=== PATIENT | female | born 1955 | race Caucasian/White ===

== ENCOUNTER 2017-06-14 15:22 | Emergency (ER) | payer BC ==
[~2017-06-14] VITALS: Ht 162.6 cm; Wt 74.9 kg
[~2017-06-14 15:22] MED LIST: ASPI325T PO; ENOX40P SQ; LEVO112T2 PO; LIVA2TAB PO; LORTA5 PO; Z.0.COMMODE-3:1; Z.0.CPM; Z.0.WALKERFRONT
[2017-06-14 15:25] VITALS: BP 125/60; PULSE 80; RESP 16; TEMP 98.6
--- NOTE | 2017-06-14 17:37 | PD ---
HPI Chief Complaint: Abdominal Pain Time Seen by Provider: 17:23 Travel History International Travel<30 days: No Contact w/Intl Traveler<30days: No Traveled to known affect area: No History of Present Illness HPI The patient was seen and examined in the presence of the nurse. This patient complains of abdominal pain. Duration 2 days. Location is right lower quadrant. Severity is moderate. No alleviating factors. Denies fever or urinary complaints. She has no ovaries or uterus. No exacerbating factors. She ate lunch today which did not change her symptoms PFSH Past Medical History Arthritis: Yes Blood Disorders: No Anxiety: No Depression: No Cancer: Yes (THYROID) Cardiovascular Problems: Yes (MVP) High Cholesterol: Yes Diabetes: No Diminished Hearing: No Endocrine: No Gastrointestinal Disorders: Yes Genitourinary: No Hepatitis: No Hiatal Hernia: Yes Immune Disorder: No Implanted Vascular Access Dvce: No Musculoskeletal: Yes (ARTHRITIS) Neurologic: No Psychiatric: No Reproductive: No Respiratory: No Immunizations Current: Yes Thyroid Disease: Yes (thyiroidectomy) ?: Not Menopausal: Yes Past Surgical History AICD: No Endocrine Surgery: Yes (THYROIDECTOMY) Gynecologic Surgery: Yes (HYSTERECTOMY) Hysterectomy: Yes (1991) Joint Replacement: Yes (PARTIAL RIGHT KNEE) Oral Surgery: Yes (THYROIDECTOMY, TONSILS) Pacemaker: No Tonsillectomy: Yes Social History Alcohol Use: No Tobacco Use: Yes (QUIT X 1 WEEK AGO; PREVIOUSLY 1 PPD SMOKER X 44 YEARS) Substance Use: No Allergies-Medications (Allergen,Severity, Reaction): Coded Allergies: penicillin G (Verified Allergy, Severe, Hives, 06/14/17) azithromycin (Verified Allergy, Mild, ITCHING, 06/14/17) Uncoded Allergies: VYTORIN (Adverse Reaction, Intermediate, MUSCULAR PROBLEM, 08/08/14) Reported Meds & Prescriptions Reported Meds & Active Scripts Active Reported [Libraldor] 2 Mg PO HS Synthroid (Levothyroxine Sodium) 137 Mcg Tab 130 Mcg PO DAILY Review of Systems General / Constitutional: No: Fever Eyes: No: Visual changes HENT: No: Headaches Cardiovascular: No: Chest Pain or Discomfort Respiratory: No: Shortness of Breath Gastrointestinal: Positive: Abdominal Pain Genitourinary: No: Dysuria Musculoskeletal: No: Pain Skin: No Rash Neurologic: No: Weakness Psychiatric: No: Depression Endocrine: No: Polydipsia Hematologic/Lymphatic: No: Easy Bruising Physical Exam Narrative GENERAL: Well-nourished, well-developed patient in no apparent distress. SKIN: Focused skin assessment reveals no rash and nodules. Skin is Warm and dry. HEAD: Atraumatic. Normocephalic. EYES: Pupils equal and round. No scleral icterus. No injection or drainage. ENT: No nasal bleeding or discharge. Mucous membranes pink and moist. NECK: Trachea midline. No JVD. CARDIOVASCULAR: Regular rate and rhythm. No murmur appreciated. RESPIRATORY: No accessory muscle use. Clear to auscultation. Breath sounds equal bilaterally. GASTROINTESTINAL: Abdomen soft, right lower quadrant is tender without rebound or guarding, nondistended. Hepatic and splenic margins not palpable. MUSCULOSKELETAL: No obvious deformities. No clubbing. No cyanosis. No edema. NEUROLOGICAL: Awake and alert. No obvious cranial nerve deficits. Motor grossly within normal limits. Normal speech. PSYCHIATRIC: Appropriate mood and affect; insight and judgment normal. Data Data Last Documented VS Vital Signs Date Time Temp Pulse Resp B/P (MAP) Pulse Ox O2 Delivery O2 Flow Rate FiO2 06/14/17 19:06 14 96 Room Air 06/14/17 19:05 73 137/77 (97) 06/14/17 15:25 98.6 Orders Orders Basic Metabolic Panel (Bmp) (06/14/17 17:34) Complete Blood Count With Diff (06/14/17 17:34) Prothrombin Time / Inr (Pt) (06/14/17 17:34) Act Partial Throm Time (Ptt) (06/14/17 17:34) Urinalysis - C+S If Indicated (06/14/17 17:34) Ct Abd/Pel W Iv Contrast(Rout) (06/14/17 17:34) Iv Access Insert/Monitor (06/14/17 17:34) Ecg Monitoring (06/14/17 17:34) Oximetry (06/14/17 17:34) Sodium Chloride 0.9% Flush (Ns Flush) (06/14/17 17:45) Iohexol 350 Inj (Omnipaque 350 Inj) (06/14/17 19:19) Ed Discharge Order (06/14/17 19:59) Labs Laboratory Tests Test 06/14/17 18:05 06/14/17 19:07 White Blood Count 8.7 TH/MM3 Red Blood Count 4.53 MIL/MM3 Hemoglobin 13.3 GM/DL Hematocrit 39.0 % Mean Corpuscular Volume 86.0 FL Mean Corpuscular Hemoglobin 29.3 PG Mean Corpuscular Hemoglobin Concent 34.0 % Red Cell Distribution Width 13.7 % Platelet Count 281 TH/MM3 Mean Platelet Volume 7.9 FL Neutrophils (%) (Auto) 61.1 % Lymphocytes (%) (Auto) 26.3 % Monocytes (%) (Auto) 10.0 % Eosinophils (%) (Auto) 2.1 % Basophils (%) (Auto) 0.5 % Neutrophils # (Auto) 5.3 TH/MM3 Lymphocytes # (Auto) 2.3 TH/MM3 Monocytes # (Auto) 0.9 TH/MM3 Eosinophils # (Auto) 0.2 TH/MM3 Basophils # (Auto) 0.0 TH/MM3 CBC Comment DIFF FINAL Differential Comment Prothrombin Time 10.0 SEC Prothromb Time International Ratio 1.0 RATIO Activated Partial Thromboplast Time 25.6 SEC Blood Urea Nitrogen 23 MG/DL Creatinine 0.56 MG/DL Random Glucose 88 MG/DL Calcium Level 8.7 MG/DL Sodium Level 141 MEQ/L Potassium Level 3.9 MEQ/L Chloride Level 106 MEQ/L Carbon Dioxide Level 27.6 MEQ/L Anion Gap 7 MEQ/L Estimat Glomerular Filtration Rate 110 ML/MIN Urine Color YELLOW Urine Turbidity CLEAR Urine pH 6.0 Urine Specific Hamilton 1.018 Urine Protein NEG mg/dL Urine Glucose (UA) NEG mg/dL Urine Ketones 15 mg/dL Urine Occult Blood NEG Urine Nitrite NEG Urine Bilirubin NEG Urine Leukocyte Esterase TRACE Urine RBC 0-3 /hpf Urine WBC 3-5 /hpf Urine Squamous Epithelial Cells 0-5 /hpf Microscopic Urinalysis Comment CULT NOT INDICATED MDM Medical Decision Making Medical Screen Exam Complete: Yes Emergency Medical Condition: Yes Medical Record Reviewed: Yes Differential Diagnosis Appendicitis, colitis, ileus Narrative Course I have reviewed the patient's electronic medical record. Patient is right lower quadrant pain and will need evaluation to rule out appendicitis IV placed CBC is normal Metabolic profile is normal Coagulation studies are normal CT of abdomen and pelvis with IV contrast shows nothing dangerous. Appendix is normal. We discussed the incidental findings of left adrenal mass and hiatal hernia. She knew about the hernia. She is advised to discuss the adrenal lesion with her physician Diagnosis Primary Impression: Abdominal pain Qualified Codes: R10.31 - Right lower quadrant pain Additional Instructions: The patient was advised to follow up with their physician and return if they worsen. Discuss incidental findings noted on CAT scan with your doctor Med/Other Pt SpecificInfo: Other Disposition: 01 DISCHARGE HOME Condition: Stable (severe) Kishan Chris MD Jun 14, 2017 17:37
[2017-06-14] MEDS ORDERED: SODIUM CHLORIDE 0.9% FLUSH 10 ML FLUSH IV FLUSH PRN (17:45)
[2017-06-14] MEDS ORDERED: LEVO-86 PO (17:52)
[2017-06-14] MEDS ORDERED: [UNRECOGNIZED DRUG - OTHER] PO (17:52)
[2017-06-14 18:13] LABS: AUTOMATED NEUTROPHIL # 5.3 TH/MM3 (1.8-7.7); BASOPHIL % 0.5 % (0.0-2.0); EOSINOPHIL # 0.2 TH/MM3 (0-0.4); EOSINOPHIL % 2.1 % (0.0-4.0); HEMOGLOBIN 13.3 GM/DL (11.6-15.3); LYMPH % 26.3 % (9.0-44.0); LYMPHOCYTE # 2.3 TH/MM3 (1.0-4.8); MEAN CORPUSCULAR HEMOGLOBIN 29.3 PG (27.0-34.0); MEAN PLATELET VOLUME 7.9 FL (7.0-11.0); MONOCYTE # 0.9 TH/MM3 (0-0.9); NEUT % 61.1 % (16.0-70.0); PLATELET COUNT 281 TH/MM3 (150-450); RED BLOOD COUNT 4.53 MIL/MM3 (4.00-5.30); RED CELL DISTRIBUTION WIDTH 13.7 % (11.6-17.2); WHITE BLOOD COUNT 8.7 TH/MM3 (4.0-11.0)
[2017-06-14 18:26] LABS: CALCIUM 8.7 MG/DL (8.5-10.1)
[2017-06-14 18:27] LABS: BICARBONATE 27.6 MEQ/L (21.0-32.0)
[2017-06-14 18:30] LABS: CREATININE 0.56 MG/DL (0.50-1.00)
[2017-06-14 19:05] VITALS: BP 137/77; PULSE 73; RESP 14; O2SAT 96
[2017-06-14 19:06] VITALS: RESP 14; O2SAT 96
[2017-06-14] MEDS ORDERED: IOHEXOL 350 MG/ML 10 ML VIAL (for RAD DIAG) IVCONTRAST ONE (19:19)
[2017-06-14 19:21] LABS: BILIRUBIN, URINE NEG (NEG); BLOOD, URINE NEG (NEG); GLUCOSE,URINE NEG (NEG); KETONE, URINE 15 mg/dL (NEG); NITRITE,URINE NEG (NEG); URINE LEUKOCYTE ESTERASE TRACE (NEG)
[2017-06-14 19:41] LABS: URINE COLOR YELLOW (YELLW/STRAW)
--- NOTE | 2017-06-14 19:41 | RADRPT ---
EXAM DATE/TIME: 06/14/2017 19:11 [facility] COMPARISON: No previous studies available for comparison. INDICATIONS : Right lower quadrant pain. IV CONTRAST: 100 cc Omnipaque 350 (iohexol) IV ORAL CONTRAST: No oral contrast ingested. RADIATION DOSE: 14.24 CTDIvol (mGy) MEDICAL HISTORY : Hernia, hiatal. Smoking history. SURGICAL HISTORY : Hysterectomy. Thyroidectomy.Orthopedic surgery. ENCOUNTER: Initial ACUITY: 2 days PAIN SCALE: 7/10 LOCATION: Right lower quadrant TECHNIQUE: Volumetric scanning of the abdomen and pelvis was performed. Using automated exposure control and ad justment of the mA and/or kV according to patient size, radiation dose was kept as low as reasonably achievable to obtain optimal diagnostic quality images. DICOM format image data is available electro nically for review and comparison. FINDINGS: LOWER LUNGS: The visualized lower lungs are clear. 4.6 cm hiatus hernia. LIVER: Homogeneous density without solid lesion. 6 mm cyst in the upper posterior segment right postop Ther e is no dilation of the biliary tree. No calcified gallstones. SPLEEN: Normal size without lesion. PANCREAS: Within normal limits. KIDNEYS: Normal in size and shape. There is no mass, stone or hydronephrosis. ADRENAL GLANDS: Round 1.8 cm mass in the left adrenal gland with mean CT density 64 Hounsfield units. The right adre nal gland is normal in appearance. VASCULAR: There is no aortic aneurysm. BOWEL/MESENTERY: No dilated loops of small or large bowel. The appendix is identified in the right lower quadrant and has a normal appearance measuring 6 mm with one containing gas no evidence of free fluid. ABDOMINAL WALL: Within normal limits. RETROPERITONEUM: There is no lymphadenopathy. BLADDER: No wall thickening or mass. REPRODUCTIVE: Within normal limits. INGUINAL: There is no lymphadenopathy or hernia. MUSCULOSKELETAL: Bilateral pars defects of L5. CONCLUSION: 1. Normal appearance to the appendix. 2. Round left adrenal mass measuring 1.8 cm which is of uncertain significance. The density is great er than would be seen with an adenoma. 3. Moderate size hiatus hernia. Mukesh Frausto MD on June 14, 2017 at 19:34 Board Certified Radiologist. This report was verified electronically.
[2017-06-14 19:42] LABS: RBC, URINE 0-3 /hpf (0-3); SQUAMOUS EPITHELIAL CELL URINE 0-5 /hpf (0-5)
[2017-06-14 20:24] VITALS: BP 117/59; PULSE 80; RESP 14; O2SAT 97
== END 2017-06-14 20:28 | disposition home or self-care (01) ==
LOC: PHED 15:22
DX: R10.31 Right lower quadrant pain (principal); M19.90 Unspecified osteoarthritis, unspecified site; E78.00 Pure hypercholesterolemia, unspecified
CPT/HCPCS: 74177; 80048; 81001; 85025; 85610; 85730; 99285; Q9967

== ENCOUNTER → 2017-08-10 | Day surgery (SDC) | payer BC ==
[~2017-08-10] VITALS: Ht 162.6 cm; Wt 72.5 kg
[~2017-08-10] MED LIST changes: +ACETAMINOPHEN 1000 MG/100 ML 100 ML IV ONE; -ASPI325T PO; +CHLORHEXIDINE GLUCONATE 2 % 1 PACK (2 CLOTHS) TOPICAL PRN; +CLINDAMYCIN 600 MG/NS PREMIX 50 ML IV ONE; +DEXAMETHASONE SOD PHOS 4 MG/ML VIAL IV ONE; -ENOX40P SQ; +FAMOTIDINE 20 MG/2 ML VIAL ONE; +LACTATED RINGER'S 1000 ML INJ 1,000 ML IV ONE; +LACTATED RINGER'S 1000 ML INJ 1,000 ML ONE; +LACTATED RINGER'S 1000 ML IV PRN; +LEVO-86 PO; -LEVO112T2 PO; +LIDOCAINE 1%/EPINEPHrine 1:100,000 SOLN 30 ML VIAL ONE; +LIDOCAINE HCL 1% PF 5 ML SYRINGE OTHER ONE; -LIVA2TAB PO; -LORTA5 PO; +METOPROLOL TARTRATE 25 MG TAB PO PRN; +METOPROLOL TARTRATE 5 MG/5 ML VIAL IV PUSH ONE; +MIDAZOLAM HCL 2 MG/2 ML VIAL ONE; +MORPHINE SULFATE 4 MG/ML INJ ONE; +ONDANSETRON HCL 4 MG/2 ML VIAL IV PUSH ONE; +OXYMETAZOLINE HCL 0.05% 15 ML NASAL SPRAY ONE; +POVIDONE IODINE 5% (ANTISEPSIS KIT) 4 APPLICATIONS EACH NARE PRN; +PROPOFOL 200 MG/20 ML AMP IV ONE; +ROCURONIUM INJ 50 MG/5 ML SYRINGE IV PUSH ONE; +SODIUM CHLORID 0.9% 500 ML IV PRN; +SUGAMMADEX SODIUM 200 MG/2 ML VIAL IV PUSH ONE; -Z.0.COMMODE-3:1; -Z.0.CPM; -Z.0.WALKERFRONT; +[UNRECOGNIZED DRUG - OTHER] PO
[2017-08-10 10:45] VITALS: PULSE 83
[2017-08-10 13:15] VITALS: BP 121/82; PULSE 92; RESP 18; TEMP 97.8; O2SAT 93
--- NOTE | 2017-08-11 22:21 | EKG ---
Date Performed: 08/10/2017 Time Performed: 07:52:47 PTAGE: 61 years EKG: SINUS BRADYCARDIA NONSPECIFIC T-WAVE ABNORMALITY BORDERLINE ECG PREVIOUS TRACING : 11/17/2010 09.40 Since the prior tracing, there has been no significant sol DOCTOR: Lucas Guzmán Interpretating Date/Time 08/11/2017 22:18:43
--- NOTE | 2017-08-20 09:44 | MP ---
cc: JENSEN NATHAN MD DATE OF SURGERY 08/10/[address] Jensen Nathan PREOPERATIVE DIAGNOSIS 1. Chronic pansinusitis. 2. Nasal airway obstruction. 3. Nasal septal deviation. 4. Hypertrophy of inferior turbinates. POSTOPERATIVE DIAGNOSIS 1. Chronic pansinusitis. 2. Nasal airway obstruction. 3. Nasal septal deviation. 4. Hypertrophy of inferior turbinates. OPERATION PERFORMED 1. Open repair nasal septal fracture. 2. Bilateral submucosal resection of inferior turbinates. 3. Bilateral endoscopic total ethmoidectomy. 4. Bilateral endoscopic maxillary antrostomy with removal of maxillary sinus tissue. 5. Bilateral endoscopic exploration of frontal sinus ducts with balloon dilation. 6. Bilateral endoscopic sphenoidotomy with balloon dilation. INDICATIONS The indications are documented in the history and physical. DESCRIPTION OF OPERATION The patient was taken to OR #2 and placed in the supine position. Following induction of general anesthesia and intubation the nose was packed bilaterally with cotton pledgets saturated in 0.05% oxymetazoline. The nasal septal mucosa and inferior turbinates were injected with a total of 8 mL of 1% Xylocaine with epinephrine 1:100,000. She was then prepped and draped for surgery. The packing was removed and a hemitransfixion incision was made in the left nasal vestibule and through this incision the septal mucosa was elevated bilaterally as far as the junction of the bony cartilaginous septum. This exposed the quadrangular cartilage which showed evidence of old fracture with a few comminuted fracture segments extending bilaterally and compromising the nasal airway. A cumulative area of 2 x 2 cm was removed preserving 1.5 cm dorsal and caudal cartilaginous struts. When this was completed the mucosa was elevated from the bony septum and the maxillary crest and the bony septum was removed using Joni-Vega forceps and James septal forceps. The maxillary crest was removed using a 6 mm Manoj chisel. The incision was then closed using a running suture of 4-0 chromic and the mucosal layers of the septum were approximated to each other with a quilting stitch of 4-0 plain gut. Next, the inferior turbinates were addressed. They were fractured out medially and stab incisions were opened along their inferior surfaces. Through these incisions the submucosal soft tissue was reduced using a curet and preserving the conchal bone. The incision was then cauterized using suction Bovie at 35 anglin. The remnants of the inferior turbinates were then re-lateralized to the lateral nasal wall. At this point forward the operation was done using endoscopic visualization. Additional injections of lidocaine and epinephrine were made into the inferior turbinates, the uncinate processes and the ethmoid cells bilaterally. Then using through-cutting Blakesley forceps the left side was addressed first. The middle turbinate was amputated. This was included in the specimen labeled left sinus contents. When this was completed the ethmoid cells were entered bluntly and fragments of bone and soft tissue were removed from the ethmoid cells as far as the basal lamella. This was then reduced medially to laterally using a power microdebrider. The posterior cells were also entered and the cavities were debrided back as far as the sphenoid rostrum. These were also included in the left sinus contents. The right side was then addressed and the same operations were performed on this side beginning with amputation of the middle turbinate and exenteration of anterior and posterior ethmoids. At this point the ethmoid cavities were packed with cotton pledgets saturated in oxymetazoline while the balloon dilations were completed on the frontal and sphenoid ducts. The left frontal was addressed first. The guidewire was advanced into the frontal sinus and the balloon advanced over the wire. It was inflated at three levels, superiorly at the midpoint and inferiorly at the junction with the ethmoid cells at each level to a pressure of 12 atmospheres. The balloon was then removed and the duct was verified patent all the way into the frontal sinus. Fragments of bone and soft tissue were removed during this process. The right side was then dilated in the same fashion. Lastly, using the sphenoid dilator the sphenoid ostia was dilated on both sides. It was inspected with the 0-degree scope and found to be patent and there was no evidence of infection within the sphenoid sinus. The packing was removed posteriorly and all sinuses were irrigated with chilled saline. The superior half of the nasal vault was then packed with Stammberger sinus foam into the nasal vault and into the ethmoid cavities inferiorly. The nose was filled with 5.5 cm Rapid Rhino packs each inflated with 5 mL of air and the procedure was then terminated. The patient was reversed from anesthesia and taken to Recovery in good condition. Blood loss was 400 mL. MD FANNY Blum /6:30 AM /9:12 AM
== END | disposition home or self-care (01) ==
LOC: PHSDC 06:34
PROVIDERS: ATTEND Otolaryngology
DX: J34.89 Other specified disorders of nose and nasal sinuses (principal); J32.4 Chronic pansinusitis; J34.2 Deviated nasal septum; J34.3 Hypertrophy of nasal turbinates; R94.31 Abnormal electrocardiogram [ECG] [EKG]
CPT/HCPCS: 00160; 30140; 30520; 31267; 31276; 31297; 88305; 88311; 93005; J0131; J1100; J2250; J2270; J2405; J3010; J7120